=== PATIENT | female | born 1945 | race Caucasian/White ===

== ENCOUNTER 2020-12-08 09:00 | Day surgery (SDC) | payer MEDICARE ==
[2020-12-08] VITALS (9 sets, daily range): BP systolic 104–144; BP diastolic 61–89
[~2020-12-08] VITALS: Ht 157.5 cm; Wt 100.5 kg
[2020-12-08] MEDS ORDERED: normal saline 1,000 ML IV SCH (09:30)
[2020-12-08] MEDS ORDERED: diphenhydrAMINE 25mg capsule PO PRN (09:30)
[2020-12-08] MEDS ORDERED: OMEP20TA23 PO (09:52)
[2020-12-08] MEDS ORDERED: ASPI-1265 PO (09:52)
[2020-12-08] MEDS ORDERED: LOP12.5T PO (09:52)
[2020-12-08] MEDS ORDERED: ATOR10TA87 PO (09:52)
[2020-12-08 10:47] LABS: BASOPHILS % (AUTO) 0.6 % (0-1); EOSINOPHILS # (AUTO) 0.1 X10'3 (0-0.9); EOSINOPHILS % (AUTO) 1.4 % (0-6); HEMATOCRIT 42.2 % (35.0-45.0); HEMOGLOBIN 14.2 g/dl (12.0-16.0); LYMPHOCYTES # (AUTO) 1.7 X10'3 (1.1-4.8); LYMPHOCYTES % (AUTO) 23.1 % (21-51); MEAN CORPUSCULAR HEMOGLOBIN 28.9 PG (27.0-31.0); MEAN CORPUSCULAR HGB CONC 33.6 g/dL (33.0-36.5); MEAN PLATELET VOLUME 7.7 FL (7.4-10.4); MONOCYTES # (AUTO) 0.6 X10'3 (0-0.9); MONOCYTES % (AUTO) 7.5 % (2-12); NEUTROPHILS % (AUTO) 67.4 % (42-75); PLATELET COUNT 214 X10'3 (140-440); RED BLOOD COUNT 4.91 X10'6 (4.20-5.60); RED CELL DISTRIBUTION WIDTH 14.6 % (11.5-14.5); WHITE BLOOD COUNT 7.4 X10'3 (4.5-11.0)
[2020-12-08 10:56] LABS: ALBUMIN 3.2 G/DL (3.4-5.0); ANION GAP 9 (8-16); BLOOD UREA NITROGEN 15 MG/DL (7-18); CALCIUM 8.6 MG/DL (8.5-10.1); CHLORIDE 106 MMOL/L (99-107); CREATININE 0.88 MG/DL (0.40-0.90); GLUCOSE 122 MG/DL (70-104); MAGNESIUM 1.9 MG/DL (1.5-2.4); PARTIAL THROMBOPLASTIN TIME 27 SECONDS (22-32); POTASSIUM 4.4 MMOL/L (3.5-5.1); SODIUM 140 MMOL/L (135-145); TOTAL CARBON DIOXIDE 24.8 MMOL/L (24-32); eGFR 63 ML/MIN
[2020-12-08] MEDS ORDERED: midazolam 1 mg/ML 2ml injection ONE ×3 (11:19→12:25)
[2020-12-08] MEDS ORDERED: iohexol 350MG/ML 100ml bottle IV ONE (11:19)
[2020-12-08] MEDS ORDERED: iohexol 350 MG/ML 50ML vial IV ONE (11:19)
[2020-12-08] MEDS ORDERED: heparin 1,000unit/ml 10ml vial 10 ML ONE (11:19)
[2020-12-08] MEDS ORDERED: LIDOcaine 1% (10mg/ml)w/preservative injection 20ml MDV ONE (11:19)
[2020-12-08] MEDS ORDERED: fentaNYL/PF 50MCG/1 ML 2ML syringe ONE (11:20)
[2020-12-08] MEDS ORDERED: nitroGLYCERIN-Tridil 50MG/D5W 250 ML IV ONE (11:53)
[2020-12-08] MEDS ORDERED: verapamil 2.5 mg/ml inj IV ONE (11:54)
[2020-12-08] MEDS ORDERED: normal saline 1000ml 1,000 ML IV SCH (13:20)
[2020-12-08] MEDS ORDERED: acetaminophen 325mg tablet PO PRN (13:20)
[2020-12-08] MEDS ORDERED: HYDROcodone/acetaminophen 5mg/325mg tablet PO PRN (13:20)
[2020-12-08] MEDS ORDERED: HYDROcodone/acetaminophen 10/325mg tab PO PRN (13:20)
[2020-12-08] MEDS ORDERED: ondansetron/PF 4mg/2ml inj IV PRN (13:20)
[2020-12-08] MEDS ORDERED: proCHLORperazine 10 MG/2 ml inj IV PRN (13:20)
== END 2020-12-08 16:30 | disposition home or self-care (01) ==
LOC: SSTAY O 09:00
PROVIDERS: ATTEND Internal Medicine Cardiovascular Disease
DX: R07.89 Other chest pain (principal); R06.02 Shortness of breath; I10 Essential (primary) hypertension; K21.9 Gastro-esophageal reflux disease without esophagitis; E78.5 Hyperlipidemia, unspecified; M19.90 Unspecified osteoarthritis, unspecified site; G47.30 Sleep apnea, unspecified; E66.9 Obesity, unspecified; Z68.36 Body mass index [BMI] 36.0-36.9, adult; Z79.899 Other long term (current) drug therapy; Z79.82 Long term (current) use of aspirin; Z72.89 Other problems related to lifestyle; Z98.890 Other specified postprocedural states; Z82.49 Family history of ischemic heart disease and other diseases of the circulatory system
CPT/HCPCS: 36415; 80048; 83735; 85025; 85730; 93454; 99152; C1769; C1894; J1644; J2001; J2250; J3010; Q9967; 99153; A6258; J3490